=== PATIENT | male | born 1965 | race Asian ===

== ENCOUNTER 2021-04-13 14:36 | Emergency (ER) | payer OTHER ==
[~2021-04-13] VITALS: Ht 170.2 cm; Wt 70.8 kg
[2021-04-13 15:15] VITALS: BP 104/69
--- NOTE | 2021-04-13 15:48 | NUR ---
PATIENT AMBULATED TO BED 06
[2021-04-13] MEDS ORDERED: ACETAMINOPHEN EXTRA STRENGTH 500 MG TAB PO ONE (15:55)
[2021-04-13] MEDS ORDERED: NACL 0.9% 1,000 ML IV ONE (15:55)
[2021-04-13] MEDS ORDERED: MECLIZINE 25 MG TAB PO ONE (15:55)
[2021-04-13 16:07] LABS: BASOPHILS % (AUTO) 0.4 % (0.0-2.0); EOSINOPHILS # (AUTO) 0.1 K/uL (0-0.4); EOSINOPHILS % (AUTO) 1.4 % (0.0-4.0); HEMATOCRIT 43.5 % (36-52); HEMOGLOBIN 14.7 g/dL (12.0-18.0); LYMPHOCYTES # (AUTO) 1.1 K/uL (2.0-11.5); LYMPHOCYTES % (AUTO) 20.9 % (20.5-51.1); MEAN CORPUSCULAR HEMOGLOBIN 30 pg (27-31); MEAN CORPUSCULAR HGB CONC 34 g/dL (33-37); MEAN CORPUSCULAR VOLUME 89.2 fL (80-94); MONOCYTES # (AUTO) 0.3 K/uL (0.8-1.0); NEUTROPHILS # (AUTO) 3.8 K/uL (1.8-7.7); NEUTROPHILS % (AUTO) 72.3 % (42.2-75.2); PLATELET COUNT (AUTO) 171 K/uL (140-450); RED BLOOD CELL COUNT(AUTO) 4.87 MIL/uL (4.20-6.10); WHITE BLOOD COUNT (AUTO) 5.2 K/uL (4.8-10.8)
[2021-04-13 16:22] LABS: ALBUMIN 4.2 g/dL (3.4-5.0); ANION GAP 11.5 (8-16); ASPARTATE AMINOTRANSFERASE 20 U/L (15-37); CARBON DIOXIDE 26.6 mmol/L (21-32); CHLORIDE 100 mmol/L (98-107); GFR ARICAN-AMERICAN 100 mL/min (>90); GLUCOSE 120 mg/dL (74-106); POTASSIUM 4.1 mmol/L (3.5-5.1); SODIUM SERUM 134 mmol/L (136-145); TOTAL BILIRUBIN 1.3 mg/dL (0.0-1.0); UREA NITROGEN, BLOOD 20 mg/dL (7-18)
--- NOTE | 2021-04-13 16:33 | NUR ---
Patient returned from CT scan. RN evaluating the patient at bedside.
[2021-04-13] MEDS ORDERED: MECL-335 PO (16:59)
[2021-04-13 17:04] VITALS: BP 108/72
[2021-04-13 17:10] LABS: BARBITURATE, URINE NEGATIVE ng/ml (NEG <=200); BENZODIAZEPINE, URINE NEGATIVE ng/mL (NEG <=200); CANNABINOID, URINE NEGATIVE ng/mL (NEG <=50); COCAINE, URINE NEGATIVE ng/mL (NEG <=300); OPIATE, URINE NEGATIVE ng/mL (NEG <=2000); PHENCYCLIDINE SCREEN,URINE NEGATIVE ng/mL (NEG <=25)
== END 2021-04-13 17:05 | disposition home or self-care (01) ==
LOC: MED 14:36
DX: R42 Dizziness and giddiness (principal); R07.9 Chest pain, unspecified; H53.8 Other visual disturbances; E78.5 Hyperlipidemia, unspecified
CPT/HCPCS: 36415; 70450; 80053; 80305; 84484; 85025; 93005; 96360; 99285; G0482; J7030; J8597

== ENCOUNTER 2021-06-09 17:02 | Emergency (ER) | payer OTHER ==
[~2021-06-09] VITALS: Ht 172.7 cm; Wt 64.9 kg
[~2021-06-09 17:02] MED LIST: MECL-335 PO
[2021-06-09 17:29] VITALS: BP 112/78
--- NOTE | 2021-06-09 18:20 | NUR ---
55 Y/O MALE BIB SELF FOR CHANG X 2 MONTHS WITH DIZZYNESS. AOX4, ABLE TO MAKE ALL NEEDS KNOWN. VISION IS CLEAR. AMBULATED WITH A STEADY GAIT. VSS PMHX: HLD DENIES ALLERGIES NO HOME MEDS
--- NOTE | 2021-06-09 19:16 | NUR ---
Pt report given to GAIL MARLEY. Transfer of care at this time.
--- NOTE | 2021-06-09 19:16 | NUR ---
REPORT RECIEVED FROM AYAKA LOPEZ FOR CONTINUITY OF CARE.
--- NOTE | 2021-06-09 19:38 | NUR ---
IV EST 20 G LAC. LABS DRAWN AND HAND GIVEN TO TAMMI PAREDES TECH.
--- NOTE | 2021-06-09 19:39 | NUR ---
CONSENT FOR CT ANGIO OF HEAD AND NECK OBTAINED.
[2021-06-09 20:02] LABS: BASOPHILS # (AUTO) 0.1 K/uL (0.00-0.22); BASOPHILS % (AUTO) 1.6 % (0.0-2.0); EOSINOPHILS # (AUTO) 0.4 K/uL (0-0.4); EOSINOPHILS % (AUTO) 6.9 % (0.0-4.0); HEMATOCRIT 41.8 % (36-52); HEMOGLOBIN 14.2 g/dL (12.0-18.0); LYMPHOCYTES # (AUTO) 1.6 K/uL (2.0-11.5); LYMPHOCYTES % (AUTO) 26.2 % (20.5-51.1); MEAN CORPUSCULAR HEMOGLOBIN 30 pg (27-31); MEAN CORPUSCULAR HGB CONC 34 g/dL (33-37); MEAN CORPUSCULAR VOLUME 88.3 fL (80-94); MONOCYTES # (AUTO) 0.4 K/uL (0.8-1.0); MONOCYTES % (AUTO) 6.8 % (1.7-9.3); NEUTROPHILS # (AUTO) 3.5 K/uL (1.8-7.7); NEUTROPHILS % (AUTO) 58.5 % (42.2-75.2); PLATELET COUNT (AUTO) 182 K/uL (140-450); RED BLOOD CELL COUNT(AUTO) 4.74 MIL/uL (4.20-6.10); RED CELL DISTRIBUTION WIDTH 13.5 % (11.6-13.7)
[2021-06-09 20:22] LABS: ANION GAP 11.2 (8-16); CARBON DIOXIDE 27.6 mmol/L (21-32); CREATININE 0.8 mg/dL (0.6-1.3); POTASSIUM 3.8 mmol/L (3.5-5.1)
--- NOTE | 2021-06-09 20:32 | NUR ---
PT TAKEN TO CT.
--- NOTE | 2021-06-09 20:53 | NUR ---
PT BROUGHT BACK FROM CT VIA WHEELCHAIR.
[2021-06-09] MEDS ORDERED: MECL-303 PO (20:58)
--- NOTE | 2021-06-09 21:11 | NUR ---
PT AMBULATED TO RESTROOM AND BACK TO BED WITH EVEN AND STEADY GAIT.
--- NOTE | 2021-06-09 21:35 | NUR ---
ERMD AT BEDSIDE.
[2021-06-09 22:00] VITALS: BP 116/74
--- NOTE | 2021-06-09 22:00 | NUR ---
Patient discharged with v/s stable. Written and verbal after care instructions given and explained. Patient alert, oriented and verbalized understanding of instructions. Ambulatory with steady gait. All questions addressed prior to discharge. ID band removed. Patient advised to follow up with PMD. Rx of ANTIVERT given. Patient educated on indication of medication including possible reaction and side effects. Opportunity to ask questions provided and answered.
== END 2021-06-09 22:00 | disposition home or self-care (01) ==
LOC: MED 17:02
DX: R42 Dizziness and giddiness (principal); R27.0 Ataxia, unspecified; H83.09 Labyrinthitis, unspecified ear; E78.5 Hyperlipidemia, unspecified; Z79.899 Other long term (current) drug therapy
CPT/HCPCS: 36415; 80048; 84484; 85025; 93005; 99285

== ENCOUNTER 2022-08-25 09:30 | Emergency (ER) | payer OTHER ==
[~2022-08-25] VITALS: Ht 170.2 cm; Wt 67.7 kg
[~2022-08-25 09:30] MED LIST changes: +MECL-303 PO
[2022-08-25 09:36] VITALS: BP 108/71
[2022-08-25 10:16] LABS: BASOPHILS # (AUTO) 0.1 K/uL (0.00-0.22); BASOPHILS % (AUTO) 0.8 % (0.0-2.0); EOSINOPHILS # (AUTO) 0.2 K/uL (0-0.4); HEMATOCRIT 45.2 % (36-52); HEMOGLOBIN 15.1 g/dL (12.0-18.0); LYMPHOCYTES # (AUTO) 1.4 K/uL (2.0-11.5); LYMPHOCYTES % (AUTO) 21.7 % (20.5-51.1); MEAN CORPUSCULAR HEMOGLOBIN 30 pg (27-31); MEAN CORPUSCULAR HGB CONC 34 g/dL (33-37); MEAN CORPUSCULAR VOLUME 90.7 fL (80-94); MONOCYTES # (AUTO) 0.3 K/uL (0.8-1.0); MONOCYTES % (AUTO) 4.4 % (1.7-9.3); NEUTROPHILS # (AUTO) 4.5 K/uL (1.8-7.7); NEUTROPHILS % (AUTO) 70.1 % (42.2-75.2); PLATELET COUNT (AUTO) 163 K/uL (140-450); RED BLOOD CELL COUNT(AUTO) 4.98 MIL/uL (4.20-6.10); WHITE BLOOD COUNT (AUTO) 6.5 K/uL (4.8-10.8)
[2022-08-25 11:42] LABS: ALBUMIN 3.8 g/dL (3.4-5.0); ANION GAP 12.1 (8-16); CARBON DIOXIDE 29.3 mmol/L (21-32); CREATININE 0.8 mg/dL (0.6-1.3); POTASSIUM 4.4 mmol/L (3.5-5.1); TOTAL BILIRUBIN 1.1 mg/dL (0.0-1.0)
[2022-08-25] MEDS ORDERED: AMOX500C25 PO (12:12)
[2022-08-25] MEDS ORDERED: AZIT250T4 PO (12:12)
[2022-08-25 12:41] VITALS: BP 100/65
== END 2022-08-25 12:42 | disposition home or self-care (01) ==
LOC: MED 09:30
DX: J18.9 Pneumonia, unspecified organism (principal); E78.5 Hyperlipidemia, unspecified; Z79.899 Other long term (current) drug therapy
CPT/HCPCS: 36415; 71045; 80053; 83880; 84484; 85025; 93005; 99285; Q0092

== ENCOUNTER 2023-08-26 14:22 | Emergency (ER) | payer OTHER ==
[~2023-08-26] VITALS: Ht 177.8 cm; Wt 67.1 kg
[~2023-08-26 14:22] MED LIST changes: +AMOX500C25 PO; +AZIT250T4 PO
[2023-08-26 14:25] VITALS: BP 126/84; PULSE 88; RESP 17; TEMP 98.2; O2SAT 98
[2023-08-26 15:37] LABS: BASOPHILS # (AUTO) 0.1 K/uL (0.00-0.22); EOSINOPHILS # (AUTO) 0.2 K/uL (0-0.4); EOSINOPHILS % (AUTO) 4.8 % (0.0-4.0); HEMATOCRIT 44.1 % (36-52); HEMOGLOBIN 15.1 g/dL (12.0-18.0); LYMPHOCYTES # (AUTO) 1.4 K/uL (2.0-11.5); LYMPHOCYTES % (AUTO) 28.6 % (20.5-51.1); MEAN CORPUSCULAR HEMOGLOBIN 30 pg (27-31); MEAN CORPUSCULAR HGB CONC 34 g/dL (33-37); MEAN CORPUSCULAR VOLUME 88.8 fL (80-94); MONOCYTES # (AUTO) 0.3 K/uL (0.8-1.0); MONOCYTES % (AUTO) 6.3 % (1.7-9.3); NEUTROPHILS # (AUTO) 2.9 K/uL (1.8-7.7); NEUTROPHILS % (AUTO) 59.3 % (42.2-75.2); PLATELET COUNT (AUTO) 165 K/uL (140-450); RED BLOOD CELL COUNT(AUTO) 4.96 MIL/uL (4.20-6.10); RED CELL DISTRIBUTION WIDTH 13.3 % (11.6-13.7); WHITE BLOOD COUNT (AUTO) 4.8 K/uL (4.8-10.8)
[2023-08-26 15:49] LABS: CALCIUM 9.1 mg/dL (8.5-10.1); CARBON DIOXIDE 27.8 mmol/L (21-32); CREATININE 0.9 mg/dL (0.6-1.3); POTASSIUM 3.8 mmol/L (3.5-5.1); TOTAL BILIRUBIN 1.2 mg/dL (0.0-1.0); TOTAL PROTEIN, SERUM 7.3 g/dL (6.4-8.2)
[2023-08-26] MEDS ORDERED: AMOX500C25 PO (18:58)
[2023-08-26] MEDS ORDERED: AZIT250T4 PO (18:58)
== END 2023-08-26 19:32 | disposition home or self-care (01) ==
LOC: MED 14:22
DX: J18.9 Pneumonia, unspecified organism (principal); R07.9 Chest pain, unspecified; R06.02 Shortness of breath
CPT/HCPCS: 36415; 71045; 80053; 83880; 84484; 85025; 93005; 99285

== ENCOUNTER 2023-12-31 18:52 | Emergency (ER) | payer OTHER ==
[~2023-12-31] VITALS: Ht 170.2 cm; Wt 67.1 kg
[2023-12-31 19:06] VITALS: BP 116/73; PULSE 78; RESP 19; TEMP 97.1; O2SAT 98
[2023-12-31] MEDS ORDERED: IBUP-2213 PO (19:30)
[2023-12-31] MEDS ORDERED: ACET-8905 PO (19:30)
[2023-12-31 19:45] VITALS: BP 116/73; PULSE 78; RESP 19; TEMP 97.1; O2SAT 98
== END 2023-12-31 19:45 | disposition home or self-care (01) ==
LOC: MED 18:52
DX: S60.222A Contusion of left hand, initial encounter (principal); M25.512 Pain in left shoulder; Z79.899 Other long term (current) drug therapy; V89.2XXA Person injured in unspecified motor-vehicle accident, traffic, initial encounter; Y93.89 Activity, other specified; Y92.410 Unspecified street and highway as the place of occurrence of the external cause; Y99.8 Other external cause status
CPT/HCPCS: 99283